=== PATIENT | male | born 1960 | race Caucasian/White ===

== ENCOUNTER 2021-01-05 07:41 | Outpatient (CLI) | payer BC, SELFPAY ==
--- NOTE | ~2021-01-05 | MR_ITS ---
EXAMINATION: MR lumbar spine wo con EXAM DATE: 01/05/2021 08:55 INDICATION: M54.16 - Radiculopathy, lumbar region. Right foot numbness, weakness, right foot drop TECHNIQUE: Multi-sequential, multiplanar MR images of the lumbar spine were obtained without contrast . Sagittal T1, T2, T2 fat saturation images. Axial T2 weighted images. There is no prior study for comparison. FINDINGS: The vertebral bodies are aligned in the AP dimension. There is disc desiccation L2-S1. Larg e sized lumbar discs. The vertebral bodies are aligned in the AP dimension. The conus medullaris term inates at the T12-L1 level and has normal signal intensity and morphology. Edema surrounding a small Schmorl's node at the inferior endplate of L3. Paraspinal soft tissue is unremarkable. Level by level evaluation: T12-L1: Disc does not extend beyond the endplate margin. Facet arthropathy: Mild. Neural foraminal stenosis: No stenosis. Central canal stenosis: No stenosis. L1-L2: Disc does not extend beyond the endplate margin. Facet arthropathy: Mild. Neural foraminal stenosis: No stenosis. Central canal stenosis: No stenosis. L2-L3: There is a mild diffuse disc bulge. Facet arthropathy: Mild. Neural foraminal stenosis: No stenosis. Central canal stenosis: No stenosis. L3-L4: There is a mild diffuse disc bulge. Facet arthropathy: Mild. Neural foraminal stenosis: No stenosis. Central canal stenosis: No stenosis. L4-L5: There is a mild diffuse disc bulge. Facet arthropathy: Mild to moderate. Neural foraminal stenosis: Mild to moderate right, mild left. Central canal stenosis: Mild. L5-S1: There is a mild diffuse disc bulge. Facet arthropathy: Moderate. Neural foraminal stenosis: Mild right. Central canal stenosis: Mild. IMPRESSION: 1. Mild to moderate lumbar spondylosis. Reviewed, dictated and finalized at location B.
== END 2021-01-05 07:42 | disposition home or self-care (01) ==
PROVIDERS: PCP Family Medicine; Visit Provider Family Medicine
DX: M54.16 Radiculopathy, lumbar region (principal); M21.371 Foot drop, right foot; M47.817 Spondylosis without myelopathy or radiculopathy, lumbosacral region
CPT/HCPCS: 72148

== ENCOUNTER 2024-01-23 01:11 | Day surgery (SDC) | payer BC, SELFPAY ==
[2024-01-11 09:03] VITALS: BMI 31.6
--- NOTE | 2024-01-23 07:56 | P.PNAN_ITS ---
Anes - Initial Pre Proc Eval Procedure: Operation Date: 01/23/24 09:30 Proposed Procedures p Screening Colonoscopy - Luis Enrique Monroe MD Date/Time: 01/23/24 07:56 Surgeon: Luis Enrique Monroe MD Pre Op Diagnosis: neoplasm screening Patient Data Age: 63 Gender: M Height: 1.88 m Weight: 112 kg Allergies Allergy/AdvReac Type Severity Reaction Status Date / Time peanut Allergy Unknown headache Verified 01/23/24 08:12 Home Medications Medication Instructions Recorded Confirmed Type solifenacin 10 mg tablet (Vesicare) 10 mg PO DAILY #90 tabs 09/26/23 01/11/24 Rx ciprofloxacin HCl 500 mg tablet 500 mg PO Q12H #14 tabs 01/14/24 01/23/24 Rx Patient hx anesthesia problems: none Family hx anesthesia problems: none Results Review: All pre-operative results and documents have been reviewed as part of the pre- operative evaluation. 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 Family History Family History Mother Patient's mother is Diabetes mellitus Cerebrovascular accident Father Patient's father is Malignant neoplasm of prostate Sibling Malignant neoplasm of prostate Father Malignant neoplasm of prostate Mother Family history of diabetes mellitus in first degree relative Social History Social History Smoking status: Never smoker Alcohol intake: current Lack of Transportation: No Lack of Food: Never True Current Housing: I Have Housing Concerned About Future Housing: No Difficulty Paying Gas/Electric Bills: No Difficulty Paying for Meds: No Currently Unemployed: No Education: Bachelor's Degree Difficulty w/ Childcare or Family Care: No Spiritual care concerns: No Anes - Eval Final PreProcedure Day of Procedure 01/23/24 07:56 Patient weight: obese Heart: regular rate and rhythm Lungs: clear to auscultation Airway: Mallampati scale class II Neurological: alert and oriented Last oral intake: >/= 8 hours ASA classification: II Emergent: no Anesthetic plan: proceed Anesthesia type and monitoring: general GIVS and standard monitoring Results Review: All pre-operative results and documents have been reviewed as part of the pre- operative evaluation. Informed Consent: The patient's anesthetic plan and its attendant risks and benefits were discussed with the patient/family/POA. Questions were solicited and answers provided to the satisfaction of the patient/family/POA.
[2024-01-23 08:14] VITALS: BP 128/70; PULSE 79; RESP 18; TEMP 36.6; O2SAT 95
[2024-01-23] MEDS: LACTATED RINGERS 1,000 ML 150 ML IV CONT (08:18)
--- NOTE | 2024-01-23 09:14 | PM.HPGS ---
History of Present Illness History of Present Illness Consent: Risks, benefits, and alternatives have been discussed and questions answered. Patient agrees to proceed with procedure. 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 Family History Family History Mother Patient's mother is Diabetes mellitus Cerebrovascular accident Father Patient's father is Malignant neoplasm of prostate Sibling Malignant neoplasm of prostate Father Malignant neoplasm of prostate Mother Family history of diabetes mellitus in first degree relative Social History Social History Smoking status: Never smoker Alcohol intake: current Lack of Transportation: No Lack of Food: Never True Current Housing: I Have Housing Concerned About Future Housing: No Difficulty Paying Gas/Electric Bills: No Difficulty Paying for Meds: No Currently Unemployed: No Education: Bachelor's Degree Difficulty w/ Childcare or Family Care: No Spiritual care concerns: No Meds Home Medications and Allergies Home Medications Medication Instructions Recorded Confirmed Type solifenacin 10 mg tablet (Vesicare) 10 mg PO DAILY #90 tabs 09/26/23 01/11/24 Rx ciprofloxacin HCl 500 mg tablet 500 mg PO Q12H #14 tabs 01/14/24 01/23/24 Rx Allergies Allergy/AdvReac Type Severity Reaction Status Date / Time peanut Allergy Unknown headache Verified 01/23/24 08:12 Vital Signs Vital Signs - 24 hr 01/23/24 08:14 Temperature 97.8 F Pulse Rate 79 Respiratory Rate 18 Blood Pressure 128/70 Pulse Oximetry 95 Oxygen Delivery Room Air Exam Const: General: comfortable and no acute distress HENMT: Face/Nose/Sinus: Normal nares present Eyes: General: appearance normal, both eyes and all related structures Neck: Neck: no JVD Resp: Auscultation: clear to auscultation bilaterally Cardio: Rate: regular rate Rhythm: regular rhythm GI: Inspection: non-distended GI Palp: Yes Soft to palpation Skin: General skin exam: normal color Neuro: General: gait normal Speech: normal speech Extrem: General: normal to inspection Psych: Mental Status: mental status grossly normal Assessment and Plan Assessment and plan (1) Colon cancer screening: Code(s): Z12.11 - Encounter for screening for malignant neoplasm of colon Status: Acute Assessment and Plan: colonoscopy
[2024-01-23 09:27] VITALS: BP 105/74; PULSE 68; RESP 12; O2SAT 95
[2024-01-23 09:37] VITALS: BP 101/72; PULSE 75; RESP 20; O2SAT 95
== END 2024-01-23 09:55 | disposition home or self-care (01) ==
PROVIDERS: PCP Family Medicine; Visit Provider Internal Medicine Gastroenterology
PROC: 0DJD8ZZ Inspection of Lower Intestinal Tract, Via Natural or Artificial Opening Endoscopic (ICD-10-PCS; CPT 45378; principal; 2024-01-23 09:30)
DX: Z12.11 Encounter for screening for malignant neoplasm of colon (principal); K57.30 Diverticulosis of large intestine without perforation or abscess without bleeding; K64.8 Other hemorrhoids; E66.9 Obesity, unspecified; Z68.31 Body mass index [BMI] 31.0-31.9, adult
CPT/HCPCS: 45378; J2704; J7120